=== PATIENT | male | born 1935 | race Caucasian/White ===

== ENCOUNTER → 2020-01-03 09:56 | Outpatient (CLI) | payer MEDICARE, OTHER, SELFPAY ==
--- NOTE | 2020-01-03 | DI.CT.S_ITS ---
PROCEDURE: CT SINUS SCREEN WO CON INDICATIONS: Polyp of nasal cavity TECHNIQUE: Noncontrast 3.0 mm axial images acquired from the frontal sinuses to the mid-sella, with coronal and sagittal reformats. For radiation dose reduction, the following was used: automated exposure control, adjustment of mA and/or kV according to patient size. COMPARISON: None. FINDINGS: Image quality: Excellent. Minimal mucosal thickening seen within the right maxillary sinus. There is partial opacification of both ethmoid air cells. Bilateral sphenoid mucosal thickening. Minimal inferior frontal sinus disease bilaterally Ostiomeatal Complexes: Ostiomeatal complexes are opacified bilaterally. No Dayne cells. Miscellaneous: Visualized intra-orbital contents are normal. No marvin bullosa or paradoxical turbinate curvature. Leftward nasal septal deviation. IMPRESSION: Mild pansinus disease as above Opacified ostiomeatal complexes bilaterally Leftward nasal septal deviation Dictated by: Lalit Bowden M.D. on 01/03/2020 at 17:24 Approved by: Lalit Bowden M.D. on 01/03/2020 at 17:27
== END ==
PROVIDERS: Family Provider Family Medicine; PCP Family Medicine; Referring Provider Family Medicine; Visit Provider Otolaryngology
DX: J32.4 Chronic pansinusitis (principal); J33.0 Polyp of nasal cavity; J31.0 Chronic rhinitis; J34.2 Deviated nasal septum
CPT/HCPCS: 70486

== ENCOUNTER → 2020-03-01 14:49 | Outpatient (CLI) | payer MEDICARE, OTHER, SELFPAY ==
--- NOTE | 2020-03-01 | DI.ECHO.S_ITS ---
[facility]---------+ [facility] +---------+ : : [address] : : : : [id number] : : : : Phone: [phone]+ Echocardiogram Report + + :Name: JASMINE GRAHAM Study Date: 03/01/2020 Height: 71 in : :[facility] Weight: 203 lb : : Gender: Male BSA: 2.1 m2 : :: 1935 Age: 84 yrs BP: 142/74 mmHg: :Reason For Study: MITRAL AND AORTIC REGURGITATION : :Ordering Physician: Dr. Snyder : :Skye Performed By: Leidy Armas : :Referring: TERRY GARDNER : + + Interpretation Summary Left ventricular size and systolic function remains normal with an ejection fraction estimated 60 to 65% without any focal wall motion abnormalities. There is likely a relaxation abnormality but normal filling pressures. There has been no significant change since the previous exam. The right ventricle appears normal and is unchanged from the previous study. Pulmonary artery pressure is estimated at 29 mmHg with a CVP estimated at 8 mmHg, likely similar to that of the previous study. The left atrium is mildly enlarged and the right atrium is moderate to severely enlarged but both are grossly unchanged from the previous study. There is mild to moderate mitral regurgitation which is more prominent compared to the previous study. There is mild tricuspid regurgitation that is less prominent compared to the previous exam. The aortic valve is mildly sclerotic with minimal aortic stenosis and moderate aortic regurgitation that is slightly progressive compared to the previous study. The ascending aorta is mildly enlarged but grossly unchanged from the previous exam. The patient was in sinus bradycardia with heart rates between 45-55 bpm during the exam. Procedure: A two-dimensional transthoracic echocardiogram with color flow and Doppler was performed. Comparison is made with the echocardiogram of 02/14/2015. The study quality was technically adequate. The patient was in sinus bradycardia with heart rates between 45-55 bpm during the exam. Left Ventricle: The left ventricle is normal in size, wall thickness, and systolic function without any focal wall motion abnormalities. The estimated left ventricular end diastolic volume is 109 ml. The ejection fraction is estimated to be 60-65%. Diastolic parameters suggest a relaxation abnormality of the left ventricle, consistent with probable normal filling pressures. There has been no significant change since the previous study. Right Ventricle: The right ventricle is normal in size and function. This is unchanged compared to the previous study. Atria: The left atrium is mildly dilated. The right atrium is moderate to severely dilated. This is unchanged compared to the previous study. There is no Doppler evidence for an interatrial shunt. Mitral Valve: The mitral valve leaflets appear mildly thickened, but open well. The mitral valve leaflets are slightly calcified. There is mild to moderate mitral regurgitation. This is more prominent compared to the previous study. Aortic Valve: The aortic valve is trileaflet. The aortic valve opens well. The aortic valve is mildly calcified. There is mildly reduced leaflet mobility. There is mild aortic stenosis. There is moderate aortic regurgitation. This is slightly more prominent compared to the previous study. Tricuspid Valve: The tricuspid valve is normal in structure and function. There is mild tricuspid regurgitation. This is less prominent compared to the previous study. The right ventricular systolic pressure is estimated to be at least 29 mmHg based on an estimated right atrial pressure of 8 mm Hg. Pulmonic Valve: The pulmonic valve is normal in structure and function. There is trace pulmonic regurgitation. Great Vessels: The aortic root is normal size. The ascending aorta is mildly enlarged. This is unchanged compared to the previous study. The IVC is dilated (diameter is greater than 2.1 cm) yet it collapses greater than 50% with a sniff. This suggests a right atrial pressure of 8 mm Hg. Pericardium/ Pleura There is no pericardial effusion. There is no pleural effusion. MMode/2D Measurements & Calculations LVIDd: 4.8 cm LVOT diam: 2.0 cm LVIDs: 3.0 cm Ao root diam: 3.1 cm FS: 37.2 % asc Aorta Diam: 3.6 cm EPSS: 0.38 cm Ao Arch Diam (Prox Trans): 2.8 cm IVSd: 1.0 cm LVPWd: 1.0 cm LV yañez. diameter/BSA (cm/m^2): 2.3 LV sys. diameter/BSA (cm/m^2): 1.4 LA A2 area: 25.3 cm2 RA long axis: 6.8 cm LA A4 area: 25.8 cm2 RA area: 28.2 cm2 LA length (vol): 6.8 cm RA vol: 100.0 ml LA vol: 82.0 ml RA : 47.1 ml/m2 LA vol index: 38.6 ml/m2 IVC diam: 2.3 cm RVD1 (basal): 3.8 cm TAPSE: 2.2 cm Doppler Measurements & Calculations Ao V2 max: 208.6 cm/sec LVOT Max Vamsi: 84.1 cm/sec Ao V2 mean: 139.6 cm/sec LV V1 max P.8 mmHg Ao max P.4 mmHg LV V1 VTI: 25.9 cm Ao mean P.9 mmHg TRACY(I,D): 1.4 cm2 Ao V2 VTI: 57.1 cm TRACY(V,D): 1.2 cm2 sev ratio: 0.45 TRACY indexed to BSA (cm^2/m^2): 0.65 AI P1/2t: 694.3 msec AI dec slope: 213.3 cm/sec2 MV E max vamsi: 64.3 cm/sec TR max vamsi: 231.0 cm/sec MV A max vamsi: 92.9 cm/sec TR max P.4 mmHg MV E/A: 0.69 PA V2 max: 76.6 cm/sec Med Peak E' Vamsi: 6.7 cm/sec PA V2 mean: 52.2 cm/sec E/E' med: 9.6 PA mean P.2 mmHg Lat Peak E' Vamsi: 8.3 cm/sec E/E' lat: 7.7 E/e' average: 8.7 MV dec time: 0.15 sec MR ERO: 0.12 cm2 MR PISA: 2.3 cm2 SV(LVOT): 78.6 ml MR flow rate: 83.0 cm3/sec MR PISA radius: 0.60 cm Reading Physician:PM
== END ==
PROVIDERS: Family Provider Family Medicine; PCP Family Medicine; Referring Provider Family Medicine; Visit Provider Family Medicine
DX: I08.3 Combined rheumatic disorders of mitral, aortic and tricuspid valves (principal); I77.89 Other specified disorders of arteries and arterioles
CPT/HCPCS: 93306

== ENCOUNTER 2020-06-22 12:58 | Emergency (ER) | payer MEDICARE, OTHER, SELFPAY ==
[2020-06-22] VITALS (17 sets, daily range): BP systolic 143–198; BP diastolic 58–81; PULSE 45–65; RESP 12–20; TEMP 36.6; O2SAT 95–100; BMI 27.8
--- NOTE | 2020-06-22 13:10 | DI.RAD.S_ITS ---
PROCEDURE: XR CHEST 1V INDICATIONS: chest pain TECHNIQUE: One view of the chest was acquired. COMPARISON: [facility], CHEST 2 VIEW, 02/14/2015, 9:23. [facility], CHEST 1 VIEW, 07/21/2013, 16:12. FINDINGS: Surgical changes and devices: Left humeral arthroplasty.. Lungs and pleura: Lungs are clear except for a chronic appearing interstitial prominence. No pleural effusions or pneumothorax. Mediastinum: Mediastinal contours appear normal except for a moderate-sized hiatal hernia behind the heart. Heart size is normal. Bones and chest wall: No suspicious bony lesions. Overlying soft tissues appear unremarkable. IMPRESSION: Interstitial prominence, within the lung parenchyma, chronic. Moderate-sized hiatal hernia behind the heart. A source of chest pain is not found. Dictated by: Omar Borges M.D. on 06/22/2020 at 13:53 Approved by: Omar Borges M.D. on 06/22/2020 at 13:54
--- NOTE | 2020-06-22 13:24 | ED_ITS ---
HPI - Chest Pain General Chief Complaint: Chest Pain Stated Complaint: chest pains Time Seen by Provider: 06/22/20 13:12 Source: patient Mode of arrival: Ambulatory Limitations: no limitations History of Present Illness HPI narrative: Patient is an 85-year-old male with history of hypertension and diabetes presenting today with left-sided chest pain. Is said it started around 7:38 a.m. this morning while he was going to the bathroom. It sometimes radiates down to his abdomen and hurts to take a breath. He denies any injury or fall. He says the pain has let up a little bit. He has never felt anything like this before. He has actually noted to be quite hypertensive in the ED with a blood pressure of 198/81. MD complaint: chest pain Onset (ago): hour(s) Duration: constant Pain location: left chest Severity: moderate Pain radiation: abdomen Relieving factors: nothing Exacerbating factors: nothing Related Data Home Medications Medication Instructions Recorded Confirmed ASCORBIC ACID (VITAMIN C) 500 mg PO Q DAY #0 07/21/13 CA PANTOTHENATE/FOLIC ACID/VIT 1 tab PO QDAY #0 tab 07/21/13 (MULTIVITAMIN) aspirin 81 mg PO HS #0 07/21/13 atenolol 50 mg PO QAM #0 07/21/13 atorvastatin [Lipitor] 10 mg PO HS #0 07/21/13 doxazosin [Cardura] 8 mg PO HS #0 07/21/13 metformin [Glucophage XR] 1,000 mg PO BID #0 07/21/13 naproxen sodium [Aleve] 220 mg PO Q DAY PRN PRN #0 07/21/13 Previous Rx's Medication Instructions Recorded levofloxacin [Levaquin] 500 mg PO QDAY #10 tab 03/24/17 Allergies Allergy/AdvReac Type Severity Reaction Status Date / Time No Known Drug Allergies Allergy Verified 06/22/20 13:08 Review of Systems Review of Systems Narrative: GENERAL: Denies chills, fatigue, malaise, fever, sweats, travel HEENT: Denies sinus pain, ear pain, sore throat, difficulty swallowing, neck pain RESPIRATORY: Denies dyspnea, cough, wheezing, hemoptysis, sputum. CARDIOVASCULAR: Denies chest pain, palpitations, orthopnea, edema GASTROINTESTINAL: Denies nausea, vomiting, abdominal pain, diarrhea, constipation, melena. : Denies dysuria, frequency, incontinence, hematuria, urinary retention, flank pain. MUSCULOSKELETAL: Denies weakness, joint pain, or bony pain SKIN: No rash, no erythema, no pruritus NEUROLOGIC: Denies weakness, dizziness, headache, numbness, change in speech, confusion PSYCHIATRIC: No concerning psychosocial issues. 12 point review of systems is negative except for those stated above and HPI Patient History Medical History Diabetes (Acute) Hypertension (Acute) Exam Initial Vital Signs Initial Vital Signs: Vital Signs Temperature 97.8 F 06/22/20 13:09 Pulse Rate 65 06/22/20 13:09 Respiratory Rate 16 06/22/20 13:09 Blood Pressure 198/81 H 06/22/20 13:09 Pulse Oximetry 97 06/22/20 13:09 GENERAL: Alert pleasant elderly male no acute distress HEENT: Head atraumatic,EOMI, pupils reactive, face symmetric, moist mucous membranes CARDIOVASCULAR: Regular rate and rhythm without murmurs, rubs or gallops. RESPIRATORY: Breath sounds equal bilaterally, no wheezes rales or rhonchi. ABDOMEN: Soft, nontender. Normoactive bowel sounds all 4 quadrants. No guar ding or rebound. EXTREMITIES: Normal range of motion, no clubbing or edema. Neurovascularly intact NEUROLOGICAL: Alert and oriented x4.Normal gait and speech. SKIN: Warm, dry, no laceration, no petechiae, no rashes or lesions. Scores HEART Score Heart Score history: Slightly Suspicious Heart Score EKG: Normal Heart Score Age: > or = 65 years old Heart Score risk factors: 1-2 risk factors Heart Score troponin: < or = to normal limit Heart Score Total: 3 Course Orders Ordered: ED Orders 06/22/20 13:03 EKG-12 Lead Stat 06/22/20 13:10 XR chest 1V Stat 06/22/20 13:15 Complete Blood Count AUTO DIFF Stat Comprehensive Metabolic Panel Stat Lipase Stat Partial Thromboplastin Time Stat Prothrombin Time INR Stat Troponin & CK Cardiac Panel Stat 06/22/20 15:20 EKG-12 Lead Routine 06/22/20 15:26 Troponin I Stat Discontinued Medications Aspirin (Aspirin Chew) 324 mg PO NOW ONE Stop: 06/22/20 13:27 Last Admin: 06/22/20 13:35 Dose: 324 mg Documented by: ROSHNI Nitroglycerin (Nitrostat) 0.4 mg SL NOW ONE Stop: 06/22/20 13:24 Last Admin: 06/22/20 13:26 Dose: 0.4 mg Documented by: HIRAM Reevaluation(s) Reevaluation #1: 1326-page Vital Signs Vital signs: Vital Signs - 8 hr 06/22/20 13:09 06/22/20 13:26 06/22/20 13:28 Temperature 97.8 F Pulse Rate 59 L 53 L 54 L Respiratory Rate 15 16 Blood Pressure 198/81 H 183/72 H 183/72 H Pulse Oximetry 97 98 06/22/20 13:30 06/22/20 13:45 06/22/20 14:00 Temperature Pulse Rate 55 L 53 L 52 L Respiratory Rate 15 16 16 Blood Pressure 170/73 H 163/69 H 143/58 H Pulse Oximetry 96 96 95 06/22/20 14:15 06/22/20 14:30 06/22/20 14:45 Temperature Pulse Rate 50 L 48 L Respiratory Rate 13 13 12 Blood Pressure 148/69 H 150/64 H 151/69 H Pulse Oximetry 98 98 99 06/22/20 15:00 06/22/20 15:15 06/22/20 15:30 Temperature Pulse Rate 47 L 45 L 48 L Respiratory Rate 17 13 14 Blood Pressure 146/65 H 167/72 H 167/70 H Pulse Oximetry 98 100 98 06/22/20 15:45 06/22/20 16:00 06/22/20 16:15 Temperature Pulse Rate 48 L 48 L 49 L Respiratory Rate 15 15 14 Blood Pressure 168/74 H 169/74 H 168/74 H Pulse Oximetry 98 98 97 06/22/20 16:30 06/22/20 16:44 Temperature Pulse Rate 50 L 50 L Respiratory Rate 20 14 Blood Pressure 164/74 H 164/74 H Pulse Oximetry 97 99 MDM - Chest Pain Lab Data Attestation: I reviewed the patient's lab results. Result diagrams: 06/22/20 13:15 06/22/20 13:15 Labs: Lab Results 06/22/20 06/22/20 06/22/20 Range/Units 13:15 13:15 13:15 WBC 4.9 (4.5-11.0) X10^3/uL RBC 3.71 L (4.5-5.9) X10^6/uL Hgb 12.1 L (13.5-17.5) g/dL Hct 35.0 L (41-53) % MCV 94.4 (80-100) fL MCH 32.6 (26-34) PG MCHC 34.5 (30-36) % RDW 12.9 (11.6-14.8) % Plt Count 185 (150-400) X10^3/uL Neut % (Auto) 53.7 (50-75) % Lymph % (Auto) 25.1 (25-40) % [place] % (Auto) 9.5 (3-14) % Eos % (Auto) 10.7 H (2-4) % Baso % (Auto) 1.0 (0-2) % Neut # (Auto) 2600 (4853-7324) /uL Lymph # (Auto) 1200 (1173-2878) /uL Roseau # (Auto) 500 (0-900) /uL Eos # (Auto) 500 H (0-450) /uL Baso # (Auto) 0 (0-100) /uL PT 11.8 (10.1-12.7) SECONDS INR 1.0 (0.9-1.3) APTT 31 (26.4-36.2) SECONDS Sodium 131 L (137-145) mmol/L Potassium 4.8 (3.4-5.1) mmol/L Chloride 100 (98-107) mmol/L Carbon Dioxide 23 (22-32) mmol/L BUN 18 (9-20) mg/dL Creatinine 0.95 (0.66-1.25) mg/dL Estimated GFR > 60.0 (>60) mL/min BUN/Creatinine Ratio 18.9 (6-22) Glucose 143 H (80-110) mg/dL Calcium 9.2 (8.4-10.2) mg/dL Total Bilirubin 0.7 (0.2-1.3) mg/dL AST 28 (17-59) IU/L ALT 14 (<50) IU/L Alkaline Phosphatase 59 (38-126) U/L Total Creatine Kinase 89 (55-170) U/L CK-MB (CK-2) TNP CK-MB (CK-2) Rel Index TNP Troponin I < 0.012 (0.01-0.034) ng/mL Total Protein 7.2 (6.3-8.2) g/dL Albumin 4.1 (3.5-5.0) g/dL Globulin 3.1 (1.7-4.1) g/dL Albumin/Globulin Ratio 1.3 (1.0-2.8) Lipase 102 (23-300) U/L // Range/Units 15:26 WBC (4.5-11.0) X10^3/uL RBC (4.5-5.9) X10^6/uL Hgb (13.5-17.5) g/dL Hct (41-53) % MCV (80-100) fL MCH (26-34) PG MCHC (30-36) % RDW (11.6-14.8) % Plt Count (150-400) X10^3/uL Neut % (Auto) (50-75) % Lymph % (Auto) (25-40) % [place] % (Auto) (3-14) % Eos % (Auto) (2-4) % Baso % (Auto) (0-2) % Neut # (Auto) (9151-2935) /uL Lymph # (Auto) (9285-7375) /uL Rose[place] # (Auto) (0-900) /uL Eos # (Auto) (0-450) /uL Baso # (Auto) (0-100) /uL PT (10.1-12.7) SECONDS INR (0.9-1.3) APTT (26.4-36.2) SECONDS Sodium (137-145) mmol/L Potassium (3.4-5.1) mmol/L Chloride (98-107) mmol/L Carbon Dioxide (22-32) mmol/L BUN (9-20) mg/dL Creatinine (0.66-1.25) mg/dL Estimated GFR (>60) mL/min BUN/Creatinine Ratio (6-22) Glucose (80-110) mg/dL Calcium (8.4-10.2) mg/dL Total Bilirubin (0.2-1.3) mg/dL AST (17-59) IU/L ALT (<50) IU/L Alkaline Phosphatase (38-126) U/L Total Creatine Kinase (55-170) U/L CK-MB (CK-2) CK-MB (CK-2) Rel Index Troponin I < 0.012 (0.01-0.034) ng/mL Total Protein (6.3-8.2) g/dL Albumin (3.5-5.0) g/dL Globulin (1.7-4.1) g/dL Albumin/Globulin Ratio (1.0-2.8) Lipase (23-300) U/L Imaging Data Chest x-ray: Radiologist's Impression: PROCEDURE: XR CHEST 1V INDICATIONS: chest pain TECHNIQUE: One view of the chest was acquired. COMPARISON: [facility], , CHEST 2 VIEW, 02/14/2015, 9:23. [facility], , CHEST 1 VIEW, 07/21/2013, 16:12. FINDINGS: Surgical changes and devices: Left humeral arthroplasty.. Lungs and pleura: Lungs are clear except for a chronic appearing interstitial prominence. No pleural effusions or pneumothorax. Mediastinum: Mediastinal contours appear normal except for a moderate-sized hiatal hernia behind the heart. Heart size is normal. Bones and chest wall: No suspicious bony lesions. Overlying soft tissues appear unremarkable. IMPRESSION: Interstitial prominence, within the lung parenchyma, chronic. Moderate-sized hiatal hernia behind the heart. A source of chest pain is not found. Dictated by: Omar Borges M.D. on 06/22/2020 at 13:53 Approved by: Omar Borges M.D. on 06/22/2020 at 13:54 ECG Data Attestation: I personally reviewed and interpreted this ECG as follows: Prior ECG tracings: available for review Interpretation: 1. Normal sinus rhythm rate 64 p.r. interval [address] changes similar to previous EKG EKG 2. Sinus rhythm rate 50 T-wave inversion noted in lead 3 however this was present in 2012 no changes MDM Narrative Medical decision making narrative: Patient initially was quite hypertensive he was given nitroglycerin help with his chest pain which helped only mildly then it seemed to resolve later. The blood pressure improved and stayed low. He has 2-troponins. Pain is worse with inspiration only, does not sound quite cardiac. He does not have any more chest pain in the ED. I called and spoke with Dr. Castellanos on-call for his PCP and they will schedule an outpatient stress test. I have discussed with patient and the need to return to the ED if his chest pain should return or worsen in any way. I discussed all findings with the patient [and /spouse mother], Education has been performed regarding treatment plan, diagnosis, warning signs and symptoms and all concerns have been addressed. Verbally agree with and understood all of the above. Discharge Plan Departure Patient Disposition: Home Clinical Impression: Atypical chest pain Discharge Date/Time: 06/22/20 16:45 Instructions: DI for Atypical Chest Pain Activity Restrictions/Additional Instructions: *You have been diagnosed with atypical chest pain *What to do: At this time you do not need to stay in the hospital however you still need a stress test for further cardiac evaluation. Your PCP office should call and schedule this for you. However if your chest pain returns or worsens you need to return to emergency department immediately *Continue to take medications as directed *Follow up with your primary care provider in 2-3 days *Return to ER if you should have increase or change in chest pain, worsening shortness of breath, or any new, worsening or concerning symptoms Prescriptions: No Action atenolol 25 MG tablet 50 mg PO QAM Qty: 0 RF: 0 metformin [Glucophage XR] 500 MG tablet extended release 24 hr 1,000 mg PO BID Qty: 0 RF: 0 atorvastatin [Lipitor] 10 MG tablet 10 mg PO HS Qty: 0 RF: 0 doxazosin [Cardura] 8 MG tablet 8 mg PO HS Qty: 0 RF: 0 ASCORBIC ACID (VITAMIN C) 500 mg PO Q DAY Qty: 0 RF: 0 CA PANTOTHENATE/FOLIC ACID/VIT (MULTIVITAMIN) 1 tab PO QDAY Qty: 0 RF: 0 aspirin 81 MG tablet,delayed release (DR/EC) 81 mg PO HS Qty: 0 RF: 0 naproxen sodium [Aleve] 220 MG tablet 220 mg PO Q DAY PRN PRNQty: 0 RF: 0 levofloxacin [Levaquin] 500 MG tablet 500 mg PO QDAY Qty: 10 RF: 0 Referrals: Lillian Cheung MD [Primary Care Provider] -
[2020-06-22] MEDS: NITROGLYCERIN 0.4 MG SL TAB SL (13:26)
[2020-06-22 13:27] LABS: Add Manual Diff / Slide Review NO; Basophils Absolute Auto 0 /uL (0-100); Eosinophils Absolute Auto 500 /uL (0-450); Eosinophils Percent Auto 10.7 % (2-4); Hemoglobin 12.1 g/dL (13.5-17.5); Lymphocytes Absolute Auto 1200 /uL (1100-4500); Lymphocytes Percent Auto 25.1 % (25-40); Mean Corpuscular HGB Conc 34.5 % (30-36); Mean Corpuscular Hemoglobin 32.6 PG (26-34); Mean Corpuscular Volume 94.4 fL (80-100); Monocytes Absolute Auto 500 /uL (0-900); Monocytes Percent Auto 9.5 % (3-14); Neutrophils Absolute Auto 2600 /uL (1500-7000); Neutrophils Percent Auto 53.7 % (50-75); Platelet Count 185 X10^3/uL (150-400); Red Blood Cell Count 3.71 X10^6/uL (4.5-5.9); Red Cell Distribution Width 12.9 % (11.6-14.8); White Blood Cell Count 4.9 X10^3/uL (4.5-11.0)
--- NOTE | 2020-06-22 13:34 | PC.NURSE ---
Pt denies any changed after receiving 1 sl ntg. pain remains 01/03
[2020-06-22] MEDS: ASPIRIN 81 MG CHEW TAB 324 MG PO (13:35)
[2020-06-22 13:39] LABS: Prothrombin Time 11.8 SECONDS (10.1-12.7)
[2020-06-22 13:41] LABS: PTT Partial Thromboplastin Tim 31 SECONDS (26.4-36.2)
[2020-06-22 13:42] LABS: Alanine Aminotransferase 14 IU/L (<50); Albumin 4.1 g/dL (3.5-5.0); Albumin Globulin Ratio 1.3 (1.0-2.8); Alkaline Phosphatase 59 U/L (38-126); Aspartate Aminotransferase 28 IU/L (17-59); BUN Creatinine Ratio 18.9 (6-22); Bilirubin Total 0.7 mg/dL (0.2-1.3); Blood Urea Nitrogen 18 mg/dL (9-20); Calcium 9.2 mg/dL (8.4-10.2); Carbon Dioxide 23 mmol/L (22-32); Chloride 100 mmol/L (98-107); Creatine Kinase 89 U/L (55-170); Estimated Glomerular Filt Rate > 60.0 mL/min (>60); Globulin 3.1 g/dL (1.7-4.1); Glucose 143 mg/dL (80-110); HEMOLYSIS < 15 (0-50); Lipase 102 U/L (23-300); Potassium 4.8 mmol/L (3.4-5.1); Sodium 131 mmol/L (137-145); Total Protein 7.2 g/dL (6.3-8.2)
[2020-06-22 13:54] LABS: Troponin I < 0.012 ng/mL (0.01-0.034)
[2020-06-22 15:56] LABS: Troponin I < 0.012 ng/mL (0.01-0.034)
== END 2020-06-22 16:45 | disposition home or self-care (01) ==
PROVIDERS: Emergency Provider Emergency Medicine; Family Provider Family Medicine; PCP Family Medicine
DX: R07.89 Other chest pain (principal); I10 Essential (primary) hypertension; E11.9 Type 2 diabetes mellitus without complications
CPT/HCPCS: 36415; 71045; 80053; 82550; 83690; 84484; 85025; 85610; 85730; 93005; 99284

== ENCOUNTER → 2020-06-27 14:20 | Outpatient (CLI) | payer MEDICARE, OTHER, SELFPAY ==
[2020-06-28 10:17] LABS: COVID19 Sendout Not Detected (Not Detect)
== END ==
PROVIDERS: Family Provider Family Medicine; PCP Family Medicine; Visit Provider Nurse Practitioner
DX: Z11.59 Encounter for screening for other viral diseases (principal)
CPT/HCPCS: 87635

== ENCOUNTER → 2020-06-30 10:04 | Outpatient (CLI) | payer MEDICARE, OTHER, SELFPAY ==
--- NOTE | 2020-06-30 | DI.NM.S_ITS ---
PROCEDURE: [place] SWAPNA PERF SPECT REST & STR Rest and exercise myocardial perfusion SPECT with gated imaging and ejection fraction RADIOPHARMACEUTICAL: 11.2 mCi Tc-99m sestamibi IV at rest and 27 mCi Tc-99m sestamibi IV at peak exercise. A [id number] was performed. INDICATIONS: Chest pain, unspecified TECHNIQUE: Radiopharmaceutical was injected at peak stress test, and also at rest. SPECT images were obtained. SPECT myocardial perfusion images were displayed in short axis, horizontal long axis, and vertical long axis views. Gated images were reviewed using ISHQUANT software. COMPARISON: [place], [place], MYOCARD.PERFUSION SINGLE STUDY, 07/23/2013, 10:42. CARDIAC STRESS: A standard Abrahan treadmill exercise tolerance test was performed by the patient under the supervision of an attending staff. The patient exercised for 4 minutes and 15 seconds; functional aerobic impairment (ESTEBAN) is 0 %. Hemodynamic data: There is normal blood pressure and heart rate response to exercise stress. Patient achieved 82% of maximum predicted heart rate at peak exercise. Symptoms: Patient denied chest pain during exercise. EKG: Baseline ECG is normal sinus rhythm with no significant ST/T abnormalities. At tehe end of the recovery, the rhythm changed to an ectopic atrial rhythm at 75bpm initiated by a PAC. FINDINGS: Raw data: There is good myocardial labeling by radiotracer. No significant motion artifacts. [id number] ratio is <0.28 (normal is less than 0.38 for sestamibi tracer, and less than 0.50 for thallium tracer). Left ventricle function: Gated images demonstrate normal left ventricle wall thickening. No segmental wall motion abnormality. No transient ischemic dilation; TID is 0.89 (normal less than 1.3). The left ventricle resting end-diastolic volume is 96 mL. Left ventricle stress ejection fraction is 73% ; normal values are above 45%. Myocardial perfusion: There is normal distribution of activity in the left ventricular myocardium. No fixed or reversible perfusion defects. IMPRESSION: -Normal myocardial perfusion with no evidence of ischemia or scar. -Average exercise capacity. -Incidentally noted is initiation of an ectopic atrial rhythm in recovery, initiated by a PAC. -Compared to the prior study, the exercise capacity has deteriorated. Maximum heart rate achieved is also lower. Dictated by: Kiel Huertas M.D. on 06/30/2020 at 16:41 Approved by: Kiel Huertas M.D. on 06/30/2020 at 16:48
== END ==
PROVIDERS: Family Provider Family Medicine; PCP Family Medicine; Referring Provider Family Medicine; Visit Provider Family Medicine
DX: R07.9 Chest pain, unspecified (principal)
CPT/HCPCS: 78452; 93017; A9502

== ENCOUNTER 2021-05-07 06:56 | Emergency (ER) | payer MEDICARE, OTHER, SELFPAY ==
[2021-05-07 07:07] VITALS: BP 209/88; PULSE 71; RESP 22; TEMP 36.8; O2SAT 96; BMI 27.1
--- NOTE | 2021-05-07 07:22 | ED_ITS ---
HPI - Back Pain/Injury General Chief Complaint: Back Pain/Injury Stated Complaint: fell last night, back pain today Time Seen by Provider: 05/07/21 07:22 Source: patient Limitations: no limitations History of Present Illness HPI Narrative: This is an 86-year-old male who fell last night. Patient had been having a barbecue with his family he had some alcohol. Patient was getting ready for bed and his heard him fall. He was between the door a pillar of the wall and an end table, patient fell onto the edge of the table. Patient does not recall if he hit his head. No known loss of consciousness. Patient's went to see the patient immediately after and he was alert. Patient denies any headache, neck pain, no chest pain or shortness of breath. No nausea or vomiting. New numbness, tingling or weakness. Patient has pain over the right ribs which is quite uncomfortable. He woke up at 3:00 a.m. this morning and has not been able to get back to sleep. Patient denies any other injuries besides a small skin tear over the right elbow. Patient's states it was bleeding quite a bit last night she put a but Band-Aid over and stopped. Patient denies any numbness, tingling or weakness that is new. He denies any loss of bowel or bladder control. Patient does have a history of diabetes, hypertension and dyslipidemia he does take an aspirin 81 mg daily. He has had shoulder replacement, cholecystectomy Achilles tendon repair. No prior cardiac stents or surgery. Patient has not anything for pain today. He initially defers anything but then accepts Tylenol. He is accompanied by his whom he lives with. Related Data Home Medications Medication Instructions Recorded Confirmed ASCORBIC ACID (VITAMIN C) 500 mg PO Q DAY #0 07/21/13 CA PANTOTHENATE/FOLIC ACID/VIT 1 tab PO QDAY #0 tab 07/21/13 (MULTIVITAMIN) aspirin 81 mg tablet,delayed 81 mg PO HS #0 07/21/13 release atenolol 25 mg tablet 50 mg PO QAM #0 07/21/13 atorvastatin 10 mg tablet (Lipitor) 10 mg PO HS #0 07/21/13 doxazosin 8 mg tablet (Cardura) 8 mg PO HS #0 07/21/13 metformin 500 mg tablet,extended 1,000 mg PO BID #0 07/21/13 release 24 hr (Glucophage XR) naproxen sodium 220 mg tablet 220 mg PO Q DAY PRN PRN #0 07/21/13 (Aleve) Previous Rx's Medication Instructions Recorded levofloxacin 500 mg tablet 500 mg PO QDAY #10 tab 03/24/17 (Levaquin) hydrocodone 5 mg-acetaminophen 325 1 tab PO Q6H PRN #10 tab 05/07/21 mg tablet Allergies Allergy/AdvReac Type Severity Reaction Status Date / Time No Known Drug Allergies Allergy Verified 06/27/20 14:27 Review of Systems Review of Systems ROS Unobtainable: All systems reviewed & are unremarkable except as noted in HPI and below Patient History Medical History (Updated 05/07/21 @ 09:02 by Lashell Bailey DO) Diabetes Hypertension Surgical History (Updated 05/07/21 @ 07:31 by Lashell Bailey DO) H/O Achilles tendon repair H/O shoulder replacement Hx of cholecystectomy Social History Smoking Status: Former smoker Smoking Status: Former smoker alcohol intake frequency: 3 or more drinks per day Alcohol type: beer, wine and hard liquor Substance Use Type: does not use Exam Narrative Exam Narrative: GEN: Patient appears in mild distress. HEAD: No evidence of trauma, no raccoon/Myles sign. NECK: Nontender, painless range of motion, trachea midline Negative Nexus criteria, there is no midline tenderness, distracting injury, altered mental status, neuro deficit. EYES: PERRLA, EOMI ENT: External inspection normal, trachea is midline, TM's are normal no hemotypanum, Nares are clear, no septal hematoma, no dental or oral injury, airway is normal and with normal occlusion, No bony tenderness RESP: Chest is tender on the right posterior ribs, patient has multiple areas of ecchymosis consistent with hitting the edge of a table, there is no hematoma appreciated, patient has generalized tenderness but no significant point tenderness. He has symmetric movement, no ecchymosis, breath sounds are normal no crackles, wheezes or rales CVS: Heart sounds are normal, no murmur noted, No JVD. ABG/GI: Nontender, soft, normal bowel sounds, no distention, no organomegaly, pelvic rock is negative NEURO: Oriented AOx3, neuro is grossly intact, sensation and motor is normal all 4 extremities moving, cranial nerves II through XII are intact, GCS is 15 PSYCH: Normal mood and affect SKIN: Intact except for a punctate skin tear of the right elbow, warm and dry, no crepitus and without decubitus BACK: No CVA tenderness, no vertebral tenderness, no step-off's, no crepitus EXT: Atraumatic, hips are nontender, no pedal edema, normal color and temperature, normal range of motion of extremities with normal tendon exam, 2+ pulses in all four extremities Initial Vital Signs Initial Vital Signs: Vital Signs Temperature 98.3 F 05/07/21 07:07 Pulse Rate 71 05/07/21 07:07 Respiratory Rate 22 05/07/21 07:07 Blood Pressure 209/88 H 05/07/21 07:07 Pulse Oximetry 96 05/07/21 07:07 Scores GCS [place] coma scale eye opening: Spontaneous [place] coma scale verbal response: Orientated Jose coma scale motor response: Obey commands Jose coma scale total score: 15 Course Orders Ordered: Discontinued Medications Acetaminophen (Acetaminophen 325 Mg Tablet) 975 mg PO NOW ONE Stop: 05/07/21 07:30 Last Admin: 05/07/21 07:36 Dose: 975 mg Documented by: PEACE Reevaluation(s) Reevaluation #1: Patient is hypertensive but did not take his a.m. blood pressure medications. Patient plans to take him when he returns home. Reviewed patient's findings. Plan for incentive spirometer, Levan as needed for pain, versus Tylenol patient has prescription for meloxicam at home that he has taken in the past as well. All questions answered. Vital Signs Vital signs: Vital Signs - 8 hr 05/07/21 07:07 Temperature 98.3 F Pulse Rate 71 Respiratory Rate 22 Blood Pressure 209/88 H Pulse Oximetry 96 MDM - Back Pain/Injury Imaging Data Chest x-ray: Radiologist's Impression: [address] [id number] ReportSigned Patient: Zac Sanchez [facility]#: [id number]: 6Acct:[id number]/Sex: 86 / MDate of Service: 05/07/21Loc: EDAccession Number: [id number] Procedure: XR ribs RT min 3V w CXR1V Ordering Provider: Lashell Bailey D.O. PROCEDURE: XR RIBS RT MIN 3V W CXR 1V INDICATIONS: rib pain, s/p fall TECHNIQUE: 2 views of the right ribs were acquired, along with a single view chest. COMPARISON: [facility], , XR CHEST 1V, 06/22/2020, 13:18. FINDINGS: Surgical changes and devices: Surgical clips are noted in the region of right upper quadrant abdomen. Patient is status post left shoulder arthroplasty.. Bones and chest wall: No fractures or dislocations. No suspicious bony lesions. Overlying soft tissues appear unremarkable. Lungs and pleura: No pleural effusions or pneumothorax. There is mild pulmonary vascular congestion and bibasilar atelectasis. Possible calcified granuloma is seen in left midlung field unchanged from prior study. Mediastinum: Aortic arch calcifications are seen. Heart size is enlarged. Likely moderate hiatal hernia is seen with adjacent atelectasis of left lung base. IMPRESSION: 1. No obvious displaced right rib fracture is seen. 2. Bibasilar atelectasis and moderate size left-sided hiatal hernia. No gross pneumothorax. Dictated by: Kostas Lim M.D. on 05/07/2021 at 8:15 Approved by: Kostas Lim M.D. on 05/07/2021 at 8:17 CT scan - head: Radiologist's Impression: [address] [id number] Scan ReportSigned Patient: Zac Sanchez [facility]#: [id number]: 6Acct:[id number]/Sex: 86 / MDate of Service: 05/07/21Loc: EDAccession Number: [id number] Procedure: CT head/brain wo con Ordering Provider: Lashell Bailey D.O. PROCEDURE: CT HEAD/BRAIN WO CON INDICATIONS: fall, ? hit head, on asa TECHNIQUE: Noncontrast 4.5 mm thick angled axial sections acquired from the foramen magnum to the vertex, with coronal and sagittal reformats. For radiation dose reduction, the following was used: automated exposure control, adjustment of mA and/or kV according to patient size. COMPARISON: None. FINDINGS: Image quality: Excellent. CSF spaces: Basal cisterns are patent. No extra-axial fluid collections. The ventricles are symmetric in size and shape. Brain: No intracranial bleeds or masses. There is cerebral volume loss for age, with resultant ventricular and sulcal prominence. There are periventricular and deep white matter chronic small vessel ischemic changes. There is intracranial internal carotid artery atherosclerosis. Skull and face: Calvarium and visualized facial bones appear intact, without suspicious lesions. Sinuses: Visualized sinuses demonstrate mild fluid in the right maxillary sinus. Scattered areas of mucosal thickening are noted within the ethmoid air cells. IMPRESSION: 1. No acute intracranial process. 2. Moderate atrophy and chronic microvascular ischemic changes. Dictated by: Teetee Lazar M.D. on 05/07/2021 at 8:31 Approved by: Teetee Lazar M.D. on 05/07/2021 at 8:33 [facility] Narrative Medical decision making narrative: 86-year-old male with mechanical ground level fall last night. Patient does have some chest wall contusion but no large hematoma. He is painful but no point tenderness. X-ray does not show any obvious rib fracture although discussed with patient would treat him as a fracture. Patient is on aspirin daily but no other anticoagulants and is it was unclear if he did or did not hit his head CT of the head was ordered and is negative. Discussed with patient and at this time plan for pain management, incentive spirometer and signs and symptoms discussed return for recheck. Patient and feel comfortable with this plan. All questions answered. Discharge Plan Departure Patient Disposition: Home Clinical Impression: Fall Chest wall contusion Qualifiers: Encounter type: initial encounter Laterality: right Qualified Code(s): S20.211A - Contusion of right front wall of thorax, initial encounter Instructions: DI for Rib Fracture Activity Restrictions/Additional Instructions: Follow-up with your physician in the next week for recheck. Your x-ray does not show obvious rib fractures but I would still treat you as if you do have a fracture. The bruising on your chest wall should start reserve over the next 1-2 weeks. Use incentive spirometer hourly while awake to prevent pneumonia. You may take Tylenol up to a 1000 mg every 8 hours as needed for pain. If this is inadequate you may take narcotic pain medication as prescribed. This medication can make you sleepy do not drive, perform hazardous activities or make any major decisions while taking it. This medication will make you constipated please take a stool softener once to twice daily until stools are soft and regular. If you take Levan with Tylenol your maximum acetaminophen dose is 3000 mg in 24 hours. Prescription to [facility] in [place]. Please return for fevers, difficulty breathing, lightheadedness or passing out, rapidly worsening bruising, swelling of your chest wall or other new changes, persistent vomiting, severe headaches, difficulty with speech, new numbness tingling or weakness or other new or concerning symptoms. Prescriptions: New hydrocodone-acetaminophen 5-325 mg tablet 1 tab PO Q6H PRN (Reason: pain) Qty: 10 RF: 0 No Action atenolol 25 MG tablet 50 mg PO QAM Qty: 0 RF: 0 metformin [Glucophage XR] 500 MG tablet extended release 24 hr 1,000 mg PO BID Qty: 0 RF: 0 atorvastatin [Lipitor] 10 MG tablet 10 mg PO HS Qty: 0 RF: 0 doxazosin [Cardura] 8 MG tablet 8 mg PO HS Qty: 0 RF: 0 ASCORBIC ACID (VITAMIN C) 500 mg PO Q DAY Qty: 0 RF: 0 CA PANTOTHENATE/FOLIC ACID/VIT (MULTIVITAMIN) 1 tab PO QDAY Qty: 0 RF: 0 aspirin 81 MG tablet,delayed release (DR/EC) 81 mg PO HS Qty: 0 RF: 0 naproxen sodium [Aleve] 220 MG tablet 220 mg PO Q DAY PRN PRNQty: 0 RF: 0 levofloxacin [Levaquin] 500 MG tablet 500 mg PO QDAY Qty: 10 RF: 0 Referrals: Lillian Cheung MD [Primary Care Provider] -
--- NOTE | 2021-05-07 07:29 | DI.RAD.S_ITS ---
PROCEDURE: XR RIBS RT MIN 3V W CXR 1V INDICATIONS: rib pain, s/p fall TECHNIQUE: 2 views of the right ribs were acquired, along with a single view chest. COMPARISON: [facility], , XR CHEST 1V, 06/22/2020, 13:18. FINDINGS: Surgical changes and devices: Surgical clips are noted in the region of right upper quadrant abdomen. Patient is status post left shoulder arthroplasty.. Bones and chest wall: No fractures or dislocations. No suspicious bony lesions. Overlying soft tissues appear unremarkable. Lungs and pleura: No pleural effusions or pneumothorax. There is mild pulmonary vascular congestion and bibasilar atelectasis. Possible calcified granuloma is seen in left midlung field unchanged from prior study. Mediastinum: Aortic arch calcifications are seen. Heart size is enlarged. Likely moderate hiatal hernia is seen with adjacent atelectasis of left lung base. IMPRESSION: 1. No obvious displaced right rib fracture is seen. 2. Bibasilar atelectasis and moderate size left-sided hiatal hernia. No gross pneumothorax. Dictated by: Kostas Lim M.D. on 05/07/2021 at 8:15 Approved by: Kostas Lim M.D. on 05/07/2021 at 8:17
--- NOTE | 2021-05-07 07:30 | DI.CT.S_ITS ---
PROCEDURE: CT HEAD/BRAIN WO CON INDICATIONS: fall, ? hit head, on asa TECHNIQUE: Noncontrast 4.5 mm thick angled axial sections acquired from the foramen magnum to the vertex, with coronal and sagittal reformats. For radiation dose reduction, the following was used: automated exposure control, adjustment of mA and/or kV according to patient size. COMPARISON: None. FINDINGS: Image quality: Excellent. CSF spaces: Basal cisterns are patent. No extra-axial fluid collections. The ventricles are symmetric in size and shape. Brain: No intracranial bleeds or masses. There is cerebral volume loss for age, with resultant ventricular and sulcal prominence. There are periventricular and deep white matter chronic small vessel ischemic changes. There is intracranial internal carotid artery atherosclerosis. Skull and face: Calvarium and visualized facial bones appear intact, without suspicious lesions. Sinuses: Visualized sinuses demonstrate mild fluid in the right maxillary sinus. Scattered areas of mucosal thickening are noted within the ethmoid air cells. IMPRESSION: 1. No acute intracranial process. 2. Moderate atrophy and chronic microvascular ischemic changes. Dictated by: Teetee Lazar M.D. on 05/07/2021 at 8:31 Approved by: Teetee Lazar M.D. on 05/07/2021 at 8:33
[2021-05-07] MEDS: ACETAMINOPHEN 325 MG TABLET 975 MG PO (07:36)
[2021-05-07 08:30] VITALS: BP 187/81; PULSE 63; O2SAT 96
[2021-05-07 09:00] VITALS: BP 202/82; PULSE 64; O2SAT 97
[2021-05-07 09:42] VITALS: O2SAT 97
== END 2021-05-07 10:00 | disposition home or self-care (01) ==
PROVIDERS: Emergency Provider Emergency Medicine; Family Provider Family Medicine; PCP Family Medicine
DX: S20.211A Contusion of right front wall of thorax, initial encounter (principal); I10 Essential (primary) hypertension; R07.81 Pleurodynia; W19.XXXA Unspecified fall, initial encounter; S09.90XA Unspecified injury of head, initial encounter
CPT/HCPCS: 70450; 71101; 99283; 99284

== ENCOUNTER → 2021-09-27 10:00 | Outpatient (CLI) | payer MEDICARE, OTHER, SELFPAY ==
[2021-09-27 12:34] LABS: Hemoglobin A1C% w Est Avg Glu 5.9 % (4.0-6.0)
[2021-09-27 12:42] LABS: Alanine Aminotransferase 9 IU/L (<50); Albumin 4.1 g/dL (3.5-5.0); Albumin Globulin Ratio 1.4 (1.0-2.8); Alkaline Phosphatase 58 U/L (38-126); Aspartate Aminotransferase 24 IU/L (17-59); BUN Creatinine Ratio 15.4 (6-22); Bilirubin Total 0.9 mg/dL (0.2-1.3); Blood Urea Nitrogen 16 mg/dL (9-20); Calcium 9.5 mg/dL (8.4-10.2); Carbon Dioxide 27 mmol/L (22-32); Chloride 99 mmol/L (98-107); Cholesterol 150 mg/dL (140-199); Estimated Glomerular Filt Rate > 60.0 mL/min (>60); Glucose 120 mg/dL (80-110); HDL Cholesterol 45 mg/dL (40-60); HEMOLYSIS < 15 (0-50); LDL Cholesterol Calculated 86 mg/dL (<100); Potassium 4.5 mmol/L (3.4-5.1); Sodium 132 mmol/L (137-145); Total Protein 7.1 g/dL (6.3-8.2); Triglycerides 93 mg/dL (35-150)
[2021-09-27 15:06] LABS: Microalbumi Creatinin Ratio Ur 238.6 ug/mg CR (<30); Microalbumin Urine Random 17.9 mg/dL (0-1.6)
== END ==
PROVIDERS: Family Provider Family Medicine; PCP Family Medicine; Referring Provider Family Medicine; Visit Provider Family Medicine
DX: E11.9 Type 2 diabetes mellitus without complications (principal)
CPT/HCPCS: 36415; 80053; 80061; 82043; 82570; 83036

== ENCOUNTER → 2021-12-21 10:33 | Outpatient (CLI) | payer MEDICARE, OTHER, SELFPAY ==
--- NOTE | 2021-12-21 | DI.RAD.S_ITS ---
PROCEDURE: XR CHEST 2V INDICATIONS: ITCHING W/UNKNOWN CAUSE, R/O LYMPHOMA TECHNIQUE: 2 views of the chest were acquired. COMPARISON: [facility], JOLLY, CHEST 2 VIEW, 02/14/2015, 9:23. [facility], JOLLY, XR CHEST 1V, 06/22/2020, 13:18. FINDINGS: Surgical changes and devices: Left shoulder arthroplasty. Lungs and pleura: Lungs are clear acute opacities. Chronic appearing interstitial prominence unchanged compared to prior exams. Calcified granulomas. No pleural effusions or pneumothorax. Mediastinum: Mediastinal contours are normal. Heart size is normal. Retrocardiac hiatal hernia. Bones and chest wall: No suspicious bony abnormalities. Soft tissues appear unremarkable. IMPRESSION: No acute cardiopulmonary disease process. If there is continued concern for chest pathology consider CT scan with contrast for additional evaluation. Dictated by: Re Lacey MD, PhD on 12/21/2021 at 17:05 Approved by: Re Lacey MD, PhD on 12/21/2021 at 17:06
[2021-12-21 11:58] LABS: Add Manual Diff / Slide Review NO; Basophils Absolute Auto 0 /uL (0-100); Basophils Percent Auto 0.7 % (0-2); Eosinophils Absolute Auto 400 /uL (0-450); Eosinophils Percent Auto 8.8 % (2-4); Hematocrit 36.6 % (41-53); Hemoglobin 12.4 g/dL (13.5-17.5); Lymphocytes Absolute Auto 1100 /uL (1100-4500); Lymphocytes Percent Auto 21.8 % (25-40); Mean Corpuscular HGB Conc 33.8 % (30-36); Mean Corpuscular Hemoglobin 32.1 PG (26-34); Monocytes Absolute Auto 500 /uL (0-900); Monocytes Percent Auto 9.5 % (3-14); Neutrophils Absolute Auto 3000 /uL (1500-7000); Neutrophils Percent Auto 59.2 % (50-75); Platelet Count 189 X10^3/uL (150-400); Red Blood Cell Count 3.86 X10^6/uL (4.5-5.9); Red Cell Distribution Width 13.4 % (11.6-14.8); White Blood Cell Count 5.1 X10^3/uL (4.5-11.0)
[2021-12-21 12:13] LABS: Alanine Aminotransferase 11 IU/L (<50); Albumin 4.2 g/dL (3.5-5.0); Albumin Globulin Ratio 1.4 (1.0-2.8); Alkaline Phosphatase 58 U/L (38-126); Aspartate Aminotransferase 30 IU/L (17-59); BUN Creatinine Ratio 15.3 (6-22); Bilirubin Total 0.6 mg/dL (0.2-1.3); Blood Urea Nitrogen 20 mg/dL (9-20); Calcium 9.4 mg/dL (8.4-10.2); Carbon Dioxide 26 mmol/L (22-32); Chloride 103 mmol/L (98-107); Globulin 3.1 g/dL (1.7-4.1); Glucose 119 mg/dL (80-110); HEMOLYSIS < 15 (0-50); Potassium 4.8 mmol/L (3.4-5.1); Sodium 135 mmol/L (137-145); Total Protein 7.3 g/dL (6.3-8.2)
[2021-12-21 12:21] LABS: Erythrocyte Sedimentation Rate 16 MM/HR (0-15)
[2021-12-21 13:30] LABS: Thyroid Stimulating Hormone 2.27 uIU/mL (0.47-4.68)
[2021-12-24 15:08] LABS: Albumin 3.7 g/dL (2.9-4.4); Alpha-1-Globulin 0.1 g/dL (0.0-0.4); Alpha-2-Globulin 0.7 g/dL (0.4-1.0); Gamma Globulin 1.1 g/dL (0.4-1.8); Globulin Total 2.9 g/dL (2.2-3.9); Protein, Total 6.6 g/dL (6.0-8.5)
== END ==
PROVIDERS: Family Provider Family Medicine; PCP Family Medicine; Referring Provider Dermatology; Visit Provider Dermatology
DX: K44.9 Diaphragmatic hernia without obstruction or gangrene; L29.8 Other pruritus; L85.3 Xerosis cutis; Z79.899 Other long term (current) drug therapy
CPT/HCPCS: 36415; 71046; 80053; 84155; 84165; 84443; 85025; 85651

== ENCOUNTER → 2022-05-10 17:38 | Outpatient (CLI) | payer MEDICARE, OTHER, SELFPAY ==
--- NOTE | 2022-05-10 17:41 | DI.MRI.S_ITS ---
PROCEDURE: MR HEAD/BRAIN WO CON INDICATIONS: OTHER AMNESIA TECHNIQUE: Noncontrast axial T1 spin echo, axial T2 fast spin echo, sagittal and axial FLAIR, coronal T2 fast spin echo, axial gradient echo, axial diffusion and ADC through the brain. COMPARISON: None. FINDINGS: Image quality: Excellent. CSF Spaces: Basal cisterns are patent. No extra-axial fluid collections. Ventricles are normal in size and shape. Brain: No intracranial masses or hemorrhage. Starks/white matter interface is normal. Brainstem appears normal. Diffusion-weighted images demonstrate no acute infarct. Normal intravascular flow voids are present. Moderate atrophy and multifocal white chronic ischemic change noted. Skull and face: Calvarium has normal marrow signal. Orbits appear normal. Sinuses: Sinuses and mastoids are clear. IMPRESSION: Atrophy and white matter chronic ischemic change without acute infarct, hemorrhage or mass lesion. Approved by: Swapnil Lemus M.D. on 05/11/2022 at 9:30
== END ==
PROVIDERS: Family Provider Family Medicine; PCP Family Medicine; Referring Provider Family Medicine; Visit Provider Psychiatry & Neurology Neurology
DX: R41.3 Other amnesia (principal); R26.9 Unspecified abnormalities of gait and mobility; G31.9 Degenerative disease of nervous system, unspecified
CPT/HCPCS: 70551

== ENCOUNTER → 2022-12-23 11:29 | Outpatient (CLI) | payer MEDICARE, OTHER, SELFPAY ==
--- NOTE | 2022-12-23 | DI.US.S_ITS ---
PROCEDURE: US CAROTID DOPPLER BI INDICATIONS: abnormal findings on diagnostic imaging TECHNIQUE: Color and pulse Doppler interrogation was performed of both carotid systems, with image documentation and velocity measurements. COMPARISON: [facility], , CAROTID ARTERY DOPPLER BIL, 05/20/2008, 12:19. FINDINGS: Stenosis calculations are based on SRU (Society of Radiologists in Ultrasound) criteria. The flow velocities and the arterial waveforms are normal within both carotid arterial systems. Moderate atherosclerotic plaque is seen on both sides. The estimated degree of internal carotid artery stenosis is less than 50%. Antegrade flow is confirmed within both vertebral arteries. IMPRESSION: No hemodynamically significant stenosis is seen. No significant change from the prior. Moderate atherosclerotic plaque is noted bilaterally. Dictated by: Chapito Jang M.D. on 12/23/2022 at 11:38 Approved by: Chapito Jang M.D. on 12/23/2022 at 11:39
== END ==
PROVIDERS: Family Provider Family Medicine; PCP Family Medicine; Referring Provider Family Medicine; Visit Provider Family Medicine
DX: R90.89 Other abnormal findings on diagnostic imaging of central nervous system (principal); I65.23 Occlusion and stenosis of bilateral carotid arteries
CPT/HCPCS: 93880

== ENCOUNTER 2023-06-01 22:10 | Emergency (ER) | payer MEDICARE, OTHER, SELFPAY ==
[2023-06-01 22:13] VITALS: BP 176/74; PULSE 61; RESP 20; O2SAT 95; BMI 26.4
--- NOTE | 2023-06-01 22:13 | DI.CT.S_ITS ---
PROCEDURE: CT CERVICAL SPINE WO CON INDICATIONS: fall with head/face injury, intoxicated TECHNIQUE: Noncontrast 3 mm thick sections acquired from the skull base to the T4 level. Sagittal and coronal reformats were then constructed. For radiation dose reduction, the following was used: automated exposure control, adjustment of mA and/or kV according to patient size. COMPARISON: None. FINDINGS: Image quality: Excellent. Bones: No fractures or subluxation. There is multilevel degenerative disc disease and facet joint arthropathy. Visualized superior ribs are intact. Soft tissues: Prevertebral soft tissues are normal in thickness. No paravertebral hematomas. No apical pneumothoraces. IMPRESSION: 1. No fracture or subluxation. A Dictated by: Chris Levin M.D. on 06/02/2023 at 0:15 Approved by: Chris Levin M.D. on 06/02/2023 at 0:17
--- NOTE | 2023-06-01 22:13 | DI.CT.S_ITS ---
PROCEDURE: CT FACIAL BONES WO CON INDICATIONS: fall with head/face injury TECHNIQUE: Noncontrast 2.5 mm thick axial images acquired from the mandible through the frontal sinuses, with coronal and sagittal reformatting. For radiation dose reduction, the following was used: automated exposure control, adjustment of mA and/or kV according to patient size. COMPARISON: [facility], CT, CT HEAD/BRAIN WO CON, 06/01/2023, 22:27. FINDINGS: Image quality: Excellent. Bones and teeth: There is a comminuted mildly displaced fracture involving the outer table of the left frontal sinus as well as the left superior orbital wall anteriorly. Nasal bones and septum are intact. Visualized portions of the mandible demonstrate no fractures or subluxation. Zygomatic arches are intact. Pterygoid plates are intact. Visualized portions of the skull base and auditory canals are intact. Sinuses: There is an air-fluid level within the left frontal sinus. Mucosal thickening demonstrated within the left frontal sinus as well as the bilateral ethmoid sinuses. Mastoid air cells are aerated. Soft tissues: There is left supraorbital soft tissue swelling. Small amount of gas is demonstrated within the left orbit. No intraorbital hematoma collections. The globes are intact. Vascular: Visualized vascular structures appear normal in the absence of contrast. Bony vascular foramina and canals are intact. IMPRESSION: 1. Comminuted mildly displaced fractures involving the outer table of the left frontal sinus as well as the superior wall of the left orbit anteriorly. No definite evidence of intracranial extension or pneumocephalus. 2. Left periorbital soft tissue swelling with gas in the left orbit. Globes are intact. Dictated by: Chris Levin M.D. on 06/02/2023 at 0:13 Approved by: Chris Levin M.D. on 06/02/2023 at 0:15
--- NOTE | 2023-06-01 22:13 | DI.CT.S_ITS ---
PROCEDURE: CT HEAD/BRAIN WO CON INDICATIONS: fall with head/face injury TECHNIQUE: Noncontrast 4.5 mm thick angled axial sections acquired from the foramen magnum to the vertex, with coronal and sagittal reformats. For radiation dose reduction, the following was used: automated exposure control, adjustment of mA and/or kV according to patient size. COMPARISON: [facility], CT, CT FACIAL BONES WO CON, 06/01/2023, 22:27. FINDINGS: Image quality: Excellent. CSF spaces: Basal cisterns are patent. No extra-axial fluid collections. There is moderate cerebral volume loss, with resultant ventricular and sulcal prominence. No evidence of pneumocephalus. Brain: No intracranial hemorrhage, mass, or mass effect. There are subcortical, periventricular and deep white matter hypodensities consistent with moderate chronic small vessel ischemic changes. The weathers-white matter junction appears preserved. There is intracranial internal carotid artery atherosclerosis. Skull and face: There are comminuted and mildly displaced fractures involving the outer table of the left frontal sinus and left superior orbital wall anteriorly. The calvarium otherwise appears intact. The globes are intact within the orbits. Sinuses: Visualized sinuses demonstrate mild mucosal thickening within the frontal and ethmoid sinuses. An air-fluid level is noted within the left frontal sinus. IMPRESSION: 1. No acute intracranial abnormality. 2. Mildly comminuted fractures involving the outer table of the left frontal sinus and superior wall of the left orbit anteriorly. No evidence of pneumocephalus. Dictated by: Chris Levin M.D. on 06/02/2023 at 0:08 Approved by: Chris Levin M.D. on 06/02/2023 at 0:13
--- NOTE | 2023-06-02 00:12 | ED.FALL ---
HPI - Fall General Chief Complaint: Fall Stated Complaint: Intoxication, fall, bleeding Time Seen by Provider: 06/01/23 22:13 Source: patient Mode of arrival: Ambulatory History of Present Illness HPI Narrative: 88-year-old male former smoker with history of hypertension and hyperlipidemia as well as frequent alcohol use presents with his and daughter for evaluation of injury suffered as a consequence of a ground level fall just prior to his arrival. He had a few drinks tonight and tripped and fell striking the left side of his face but also causing a laceration adjacent to his right eye. He had no loss of consciousness nor vomiting or diarrhea. He denies any neck or back pain. He denies any blurred vision or trouble with speech. Related Data Home Medications Medication Instructions Recorded Confirmed ASCORBIC ACID (VITAMIN C) 500 mg PO Q DAY ##0 07/21/13 CA PANTOTHENATE/FOLIC ACID/VIT 1 tab PO QDAY #0 tabs 07/21/13 (MULTIVITAMIN) aspirin 81 mg tablet,delayed 81 mg PO HS ##0 07/21/13 release atenolol 25 mg tablet 50 mg PO QAM ##0 07/21/13 atorvastatin 10 mg tablet (Lipitor) 10 mg PO HS ##0 07/21/13 doxazosin 8 mg tablet (Cardura) 8 mg PO HS ##0 07/21/13 metformin 500 mg tablet,extended 1,000 mg PO BID ##0 07/21/13 release 24 hr (Glucophage XR) naproxen sodium 220 mg tablet 220 mg PO Q DAY PRN PRN ##0 07/21/13 (Aleve) Previous Rx's Medication Instructions Recorded levofloxacin 500 mg tablet 500 mg PO QDAY #10 tabs 03/24/17 (Levaquin) hydrocodone 5 mg-acetaminophen 325 1 tab PO Q6H PRN pain #10 tabs 07/12/21 mg tablet Allergies Allergy/AdvReac Type Severity Reaction Status Date / Time No Known Drug Allergies Allergy Verified 06/01/23 22:21 Review of Systems Review of Systems Narrative: GENERAL: Denies chills, fatigue, malaise, fever, sweats. HEENT: See HPI RESPIRATORY: Denies dyspnea, cough, wheezing, hemoptysis, sputum. CARDIOVASCULAR: Denies chest pain, palpitations, orthopnea, edema, GASTROINTESTINAL: Denies nausea, vomiting, abdominal pain, diarrhea, constipation, melena. : Denies dysuria, frequency, incontinence, hematuria, urinary retention. MUSCULOSKELETAL: denies weakness, joint pain, or bony pain SKIN: See HPI NEUROLOGIC: Denies weakness, headache, numbness, change in speech, confusion, seizures, incoordination. PSYCHIATRIC: No concerning psychosocial issues. 12 point review of systems is negative except for those stated above Patient History Medical History Diabetes Hypertension Surgical History H/O Achilles tendon repair H/O shoulder replacement Hx of cholecystectomy Social History Smoking Status: Former smoker Smoking Status: Former smoker alcohol intake frequency: 3 or more drinks per day Alcohol type: beer, wine and hard liquor Substance Use Type: does not use Exam Narrative Exam Narrative: GENERAL: [88] year old patient appears stated age. Well-developed patient, in mild distress. GCS 15 HEAD: 1.5 cm laceration lateral to right eye, mild abrasion and forehead, minimal swelling over left zygoma EYES: Pupils equal round and reactive. No hyphema Extraocular motions intact. No scleral icterus. No injection or drainage. ENT: Nose without bleeding, purulent drainage. Throat without erythema, tonsillar hypertrophy or exudate. Airway patent. NECK: Trachea midline. Non tender CARDIOVASCULAR: Regular rate and rhythm without murmurs, gallops, or rubs. RESPIRATORY: Clear to auscultation. Breath sounds equal bilaterally. No wheezes, rales, or rhonchi. GASTROINTESTINAL: Abdomen soft, non-tender, nondistended. EXTREMITIES: No edema or joint tenderness. BACK: Nontender without deformity or crepitance. No flank tenderness. NEURO: AOx3. SKIN: No rash or erythema of visible areas Initial Vital Signs Initial Vital Signs: Vital Signs Pulse Rate 61 06/01/23 22:13 Respiratory Rate 20 06/01/23 22:13 Blood Pressure 176/74 H 06/01/23 22:13 Pulse Oximetry 95 06/01/23 22:13 Oxygen Delivery Method Room Air 06/01/23 22:13 Procedures Laceration Repair Laceration 1: Site: face Side (If applicable): right Size (cm): 1.5 Description: stellate Depth: simple, single layer Local Anesthetic: lidocaine 2% and with epi Amount of anesthesia used (mL): 3 Pre-repair: wound explored and cleansed with chlorhexadine Skin layer closed with: nylon Skin layer suture size: 6-0 Number of sutures: 2 Course Orders Ordered: ED Orders 06/01/23 22:13 CT cervical spine wo con Stat CT facial bones wo con Stat CT head/brain wo con Stat Discontinued Medications Bacitracin (Bacitracin Oint 0.9 Gm Pckt) 1 applic TOP NOW ONE Stop: 06/02/23 00:54 Last Admin: 06/02/23 00:56 Dose: 1 applic Documented By: MADIHA Consultations Consultation #1: Discussed with on-call ENT (Dr. Man). No need for any intervention, can follow-up as needed. Vital Signs Vital signs: Vital Signs - 8 hr 06/01/23 22:13 Pulse Rate 61 Respiratory Rate 20 Blood Pressure 176/74 H Pulse Oximetry 95 Oxygen Delivery Method Room Air MDM - Fall Imaging Data CT scan - head: Radiologist's Impression: No acute intracranial abnormality. Mildly comminuted fractures of the outer table of the left frontal sinus and superior wall of the left orbit anteriorly. No evidence of pneumocephalus CT Facial Bones: Radiologist's Impression: 1. Comminuted mildly displaced fractures involving the outer table of the left frontal sinus as well as the superior wall of the left orbit anteriorly.? No definite evidence of intracranial extension or pneumocephalus. ? 2. Left periorbital soft tissue swelling with gas in the left orbit.? Globes are intact. CT - cervical spine: Radiologist's Impression: No fracture or subluxation [facility] Narrative Medical decision making narrative: CC: 88-year-old male with injuries after ground level fall, positive EtOH, activated as a modified trauma Complicating co-morbidities: Age, alcohol Data collected from: Patient Medical records reviewed: Prior notes reviewed in our EMR Differential considered, but not limited to: Facial fracture versus intracranial fracture versus other Exam documented above, pertinent findings include: GCS 15, alert and oriented, small laceration adjacent to right eye, otherwise abrasions and contusions as noted. No hyphema, no visual change, no double vision, no hemotympanum or leakage of clear fluid. Imaging studies independently reviewed: See details above Consultations: Discussed with on-call ENT, see details above Treatments: Laceration repair Re-evaluations: Continues to remain alert and oriented Discussion: Ground level fall resulting in injuries as noted above. Consultations as noted. Facial laceration repaired. Patient alert and oriented, hemodynamically stable, speaking clearly and ambulatory Disposition: see below, along with detailed discharge instructions that have been reviewed with patient as well as indications for ED re-evaluation and additional outpatient follow up Discharge Plan Departure Patient Disposition: Home Clinical Impression: Facial laceration, Closed fracture of frontal sinus, Closed fracture of orbital wall Instructions: How to Prevent Falls Activity Restrictions/Additional Instructions: *You have been diagnosed with [mild fracture of left frontal sinus as well as superior wall of left orbit, also right-sided facial laceration with repair] *What to do: *Please continue to take your regular medications as directed. [ ] New medication prescriptions sent to your pharmacy: [ ] [ ] New medication written as a paper prescription [ ] No new medications given *Please follow up with your primary care provider in 2-3 days, call for an appointment. Let them know you were seen in the Emergency Department and that we ask that you be seen in follow up. We will electronically transmit a record of today's note if your PCP is in our system * as we discussed, please follow-up with Dr. Martins at [facility]. Call the office tomorrow and let them know you were seen in the emergency department and we would like you seen in follow-up Please keep the wound clean and dry to the best of your ability. Please monitor for signs of infection such as redness to the skin or increasing pain. Have the sutures/karen removed by your doctor in about 7 days. If you are unable to get into your doctor, we would be happy to remove the sutures/karen in that same timeframe. *Return to Emergency Department if you should have any new, worsening or concerning symptoms, such as [fever greater than 101 F, shaking chills, worsening pain, persistent vomiting or other bothersome symptoms] Prescriptions: No Action atenolol 25 MG tablet 50 mg PO QAM Qty: 0 metformin [Glucophage XR] 500 MG tablet extended release 24 hr 1,000 mg PO BID Qty: 0 atorvastatin [Lipitor] 10 MG tablet 10 mg PO HS Qty: 0 doxazosin [Cardura] 8 MG tablet 8 mg PO HS Qty: 0 ASCORBIC ACID (VITAMIN C) 500 mg PO Q DAY Qty: 0 CA PANTOTHENATE/FOLIC ACID/VIT (MULTIVITAMIN) 1 tab PO QDAY Qty: 0 aspirin 81 MG tablet,delayed release (DR/EC) 81 mg PO HS Qty: 0 naproxen sodium [Aleve] 220 MG tablet 220 mg PO Q DAY PRN PRNQty: 0 levofloxacin [Levaquin] 500 MG tablet 500 mg PO QDAY Qty: 10 0RF hydrocodone-acetaminophen 5-325 mg tablet 1 tab PO Q6H PRN (Reason: pain) Qty: 10 0RF Referrals: Modesto Martins MD [Physician] - Lillian Cheung MD [Primary Care Provider] - Stand Alone Forms: Patient Portal/API
[2023-06-02] MEDS: BACITRACIN OINT 0.9 GM PCKT 1 APPLIC TOP (00:56)
--- NOTE | 2023-06-02 01:28 | PC.NURSE ---
bacitracin applied to wounds
== END 2023-06-02 01:29 | disposition home or self-care (01) ==
PROVIDERS: Emergency Provider Emergency Medicine; Family Provider Family Medicine; PCP Family Medicine
DX: S02.19XA Other fracture of base of skull, initial encounter for closed fracture (principal); S02.85XA Fracture of orbit, unspecified, initial encounter for closed fracture; S01.81XA Laceration without foreign body of other part of head, initial encounter; W01.0XXA Fall on same level from slipping, tripping and stumbling without subsequent striking against object, initial encounter
CPT/HCPCS: 70450; 70486; 72125; 99282; 99284

== ENCOUNTER → 2023-06-06 09:57 | Outpatient (CLI) | payer MEDICARE, OTHER, SELFPAY ==
--- NOTE | 2023-06-06 | DI.RAD.S_ITS ---
PROCEDURE: XR RIBS BI MIN 4V W CXR1V INDICATIONS: Pleurodynia, recent fall TECHNIQUE: 3 views of the right and left ribs were acquired, along with a single view chest. Image quality is somewhat degraded by motion artifact. COMPARISON: [facility], CR, XR CHEST 2V, 12/21/2021, 10:29. [facility], CT, CT CERVICAL SPINE WO CON, 06/01/2023, 22:27. FINDINGS: Surgical changes and devices: Left shoulder arthroplasty. Cholecystectomy clips. Bones and chest wall: Right 8-10th nondisplaced rib fractures. However, these fractures may be present on a remote CXR 12/21/2021. No left-sided rib fractures identified. No dislocations. No suspicious bony lesions. Overlying soft tissues appear unremarkable. Lungs and pleura: No pleural effusions or pneumothorax. Lungs appear clear. Left lung calcified granuloma. Mediastinum: Mediastinal contours appear normal. Hiatal hernia. Heart size is normal. IMPRESSION: Right 8-10th nondisplaced rib fractures are seen. However, these fractures may be chronic. No left sided rib fractures are identified. If clinically indicated CT chest could be considered for further evaluation. No pneumothorax. Hiatal hernia. Dictated by: Jorge A Barbosa M.D. on 06/06/2023 at 11:13 Approved by: Jorge A Barbosa M.D. on 06/06/2023 at 11:23
--- NOTE | 2023-06-06 | DI.US.S_ITS ---
PROCEDURE: US ABDOMEN COMPLETE INDICATIONS: ABDOMINAL PAIN TECHNIQUE: Real-time scanning was performed of the abdominal and retroperitoneal organs, with image documentation. COMPARISON: [facility], CT, ABDOMEN/PELVIS WITH CONTRAST, 03/24/2017, 18:22. [facility], [place], ABDOMEN COMPLETE, 07/22/2013, 9:02. FINDINGS: Liver: Echogenic. Gallbladder: Surgically absent. Biliary ducts: Intrahepatic bile ducts are non-dilated. Extrahepatic bile duct caliber measures 6 mm. Normal is 6-7 mm or less in diameter, or 10 mm or less post-cholecystectomy. Pancreas: Not well visualized due to bowel gas. Spleen: Spleen is normal in size and homogeneous in echotexture. Kidneys: Kidneys are normal in size and echotexture. Right kidney measures 12.1 cm long; left kidney measures 10.3 cm long. No hydronephrosis or nephrolithiasis. No solid masses. Aorta: Visualized aorta is normal in caliber at less than 3 cm. Iliacs: Proximal common iliac arteries are normal in caliber at less than 2.5 cm. IVC: Intrahepatic inferior vena cava is patent. Miscellaneous: No free abdominal fluid. IMPRESSION: 1. The liver is echogenic, a nonspecific finding commonly seen in the setting of steatosis. 2. Prior cholecystectomy. 3. No biliary ductal dilation demonstrated. Dictated by: Blaine Russell M.D. on 06/06/2023 at 11:10 Approved by: Blaine Russell M.D. on 06/06/2023 at 11:16
== END ==
PROVIDERS: Family Provider Family Medicine; PCP Family Medicine; Referring Provider Family Medicine; Visit Provider Family Medicine
DX: R07.81 Pleurodynia (principal); R10.84 Generalized abdominal pain; Z90.49 Acquired absence of other specified parts of digestive tract
CPT/HCPCS: 71111; 76700

== ENCOUNTER → 2023-06-11 12:31 | Outpatient (CLI) | payer MEDICARE, OTHER, SELFPAY ==
--- NOTE | 2023-06-11 14:08 | DI.CT.S_ITS ---
PROCEDURE: CT ABDOMEN PELVIS W CON INDICATIONS: Generalized abdominal pain Nausea Elevated lipase TECHNIQUE: After the administration of oral and intravenous contrast, axial sections were acquired from the lung bases to the pubic symphysis. Coronal and sagittal reformats were performed. For radiation dose reduction, the following was used: automated exposure control, adjustment of mA and/or kV according to patient size. COMPARISON:[facility], CT, ABDOMEN/PELVIS WITH CONTRAST, 03/24/2017, 18:22. [facility], [place], US ABDOMEN COMPLETE, 06/06/2023, 10:07. FINDINGS: Lung bases: No pleural effusion. ABDOMEN: Liver: Unremarkable. Gallbladder: Surgically absent. Biliary ducts: Unremarkable. Pancreas: No evidence of acute pancreatitis or drainable peripancreatic fluid collection. Spleen: Unremarkable. Adrenal Glands: Unremarkable. Kidneys and Ureters: No hydronephrosis. 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 Large periampullary duodenal diverticulum present. No evidence of mechanical small bowel obstruction. Moderate predominantly sigmoid colonic diverticulosis without evidence of acute diverticulitis. Peritoneum: No abnormal intraperitoneal fluid. No free air. Abdominal Nodes: No retroperitoneal or mesenteric adenopathy by size criteria. Vessels: Aorta and inferior vena cava are normal in size. PELVIS: Pelvic Organs: Prostatomegaly. The prostate gland is not well evaluated by CT. Bladder: Unremarkable. Pelvic Nodes: No enlarged lymph nodes. Miscellaneous: Bilateral fat containing inguinal hernias versus prominent fat adjacent to the spermatic cords. Bones: Multilevel degenerative change of the visualized spine. IMPRESSION: 1. No definite acute appearing abnormality identified within the abdomen or pelvis. No evidence of acute pancreatitis or drainable peripancreatic fluid collection. 2. 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 Dictated by: Blaine Russell M.D. on 06/11/2023 at 17:24 Approved by: Blaine Russell M.D. on 06/11/2023 at 17:38
== END ==
PROVIDERS: Family Provider Family Medicine; PCP Family Medicine; Referring Provider Family Medicine; Visit Provider Family Medicine
DX: K40.20 Bilateral inguinal hernia, without obstruction or gangrene, not specified as recurrent (principal); K57.30 Diverticulosis of large intestine without perforation or abscess without bleeding; N40.0 Benign prostatic hyperplasia without lower urinary tract symptoms; K44.9 Diaphragmatic hernia without obstruction or gangrene; R10.84 Generalized abdominal pain; R74.8 Abnormal levels of other serum enzymes; R11.0 Nausea
CPT/HCPCS: 74177